=== PATIENT | female | born 1950 | race Caucasian/White ===

== ENCOUNTER 2016-10-30 00:25 | Day surgery (SDC) | payer MEDICARE, OTHER ==
[2016-10-30] VITALS (9 sets, daily range): BP systolic 110–163; BP diastolic 61–93; PULSE 60; RESP 12–16; O2SAT 98–99
[~2016-10-30] VITALS: Ht 162.6 cm; Wt 80.5 kg
[~2016-10-30 00:25] MED LIST: ASPI-973 PO; ATOR40TA69 PO; CALC-976 PO; CARV12.52 PO; FERR-83 PO; FURO-129 PO; LEVO200T PO; LOSA100T3 PO; METF-496 PO; MULT1CAP33 PO; NITR0.4T6 SL
[2016-10-30] MEDS ORDERED: 0.9% Sodium Chloride 1,000 ML IV SCH ×2 (06:40→12:55)
[2016-10-30 10:34] LABS: BASOPHILS % (AUTO) 0.5 % (0-3); EOSINOPHILS % (AUTO) 3.1 % (0-5); MONOCYTES % (AUTO) 9.8 % (4-12); Mean Corpuscular Hemoglobin 27.5 pg (27.0-35.0); Mean Corpuscular Volume 80.6 fL (81-100); NEUTROPHILS % (AUTO) 59.1 % (40-74); Platelet Count 277 bil/L (150-400)
[2016-10-30 10:50] LABS: INR 0.98 ratio
[2016-10-30] MEDS ORDERED: METF500T PO (10:52)
[2016-10-30] MEDS ORDERED: GLPZ5T PO (10:52)
[2016-10-30] MEDS ORDERED: SIMV40TA5 PO (10:52)
--- NOTE | 2016-10-30 10:53 | NUR ---
THEA admit Admitted to [facility] about 1000. VSS. Denies pain. Tele 90-95% paced. IV's started and labs sent. See EMR for further info and assessment. Procedure and recovery reviewed and verbalizes understanding. Awaiting tutorial laboratory supervisor. Addendum: 10/30/16 at 1341 by NEDRA VIDAL RN [id number]
[2016-10-30] MEDS ORDERED: Heparin 10,000 Unit/1,000 mL NS Premix IV ONE (11:39)
[2016-10-30] MEDS ORDERED: Bupivacaine-MPF 0.5% 30 mL Inj ONE (11:40)
[2016-10-30] MEDS ORDERED: Vancomycin 1,000 mg Inj ONE (11:40)
[2016-10-30] MEDS ORDERED: 0.9% Sodium Chloride 250 ML ONE (11:40)
[2016-10-30] MEDS ORDERED: fentaNYL-PF 50 mCg/mL 2 mL Inj ONE (11:57)
[2016-10-30] MEDS ORDERED: Ondansetron 2 mg/mL 2 mL Inj IVPUSH PRN (12:55)
[2016-10-30] MEDS ORDERED: Vancomycin 1,000mg/200 mL NS IV ONE (12:55)
[2016-10-30] MEDS ORDERED: HYDROcodone-APAP 5-325 mg Tablet PO PRN (12:55)
--- NOTE | 2016-10-30 13:23 | NUR ---
Received Received from labor mediator at 1320. Dressing to LCW c/d/i. VSS. Denies pain. Tele paced. Vancomycin finishing. Ice pack applied. Cont. to monitor per orders.
[2016-10-30] MEDS ORDERED: DOXY-232 PO (14:08)
--- NOTE | 2016-10-30 16:11 | NUR ---
Pt discharged to home, ambulatory, accompanied by spouse. Pt's VSS, Lt upper chest dressing CDI, IVs discontinued intact. Pt given all discharge instructions and had no further questions at time of d/c.
--- NOTE | 2016-10-31 02:28 | PROCED ---
[address] [address] PROCEDURE NOTE PATIENT: ROSA ISELA DELATORRE : 1950 MR#: [id number] ADMIT: 10/30/2016 JOB ID: [id number] DATE OF SERVICE: 10/30/2016 SURGEON: Head Of Science: Zachary Kearns MD PREOPERATIVE DIAGNOSIS(ES): Biventricular implantable cardioverter-defibrillator battery depletion. POSTOPERATIVE DIAGNOSIS(ES): Biventricular implantable cardioverter-defibrillator battery depletion. PROCEDURE PERFORMED: Biventricular implantable cardioverter-defibrillator generator replacement (multilead implantable cardioverter-defibrillator generator placement). Medtronic pulse generator, model [id number], serial #[id number]. EXPLANTED DEVICE: Medtronic model D314TR, serial #[id number]. device 1. Medtronic right atrial lead, 45889, [id number]. 2. LV lead, Medtronic 4193 [id number]. 3. RV lead. portion was a pacing 5076 Medtronic 58 cm [id number]. The coils come from an old [place] lead with a fracture which is a Medtronic 6949 58 cm [id number]. ANESTHESIA: Bolus dosing of Versed and fentanyl . This patient is a 46-year-old woman with multifactorial cardiomyopathy whose biventricular ICD has reached . After discussion of risks and benefits of generator replacement, she opted to proceed. PROCEDURE DESCRIPTION: Following informed consent, the patient was taken to the where she was prepped and draped in usual sterile fashion. The left 30 cc of a 50/50 mixture of and lidocaine. Once adequate anesthesia had been achieved, Leads were disconnected from generator and inspected and they showed to be intact. the chronic leads were connected to a new generator and tested showing excellent sensing thresholds and impedance. placed in the capsule, and the wound was dressed with . COMPLICATIONS: None. BLOOD LOSS: Negligible. 1.9 millivolts, 418 ohms, 1.25 volts, 0.75 volts at 0.4 milliseconds, high voltage impedances were 47, 61 ohms. 1 volt at 1 millisecond. FINAL PARAMETERS: 1. 130 beats per minute. 2. at 182 beats per minute. 3. 25 joules for first shock, 300 joules x5. 4. 50 beats per minute. IMPRESSION: Successful biventricular implantable cardioverter-defibrillator generator placement. PLAN: 1. Bedrest and recovery from the THEA. 2. Doxycycline 100 mg p.o. daily x1 week. 3. The patient will return to clinic in one week. 4. Follow up with in six weeks.
[2016-10-31] MEDS ORDERED: Vancomycin Inj 1,000 MG in IV Premix 1 EACH IV ONE (06:40)
== END 2016-10-30 23:59 | disposition home or self-care (01) ==
LOC: SOUO 00:25
PROVIDERS: ATTEND Internal Medicine Cardiovascular Disease
DX: Z45.02 Encounter for adjustment and management of automatic implantable cardiac defibrillator (principal); I25.5 Ischemic cardiomyopathy; I42.0 Dilated cardiomyopathy; I25.10 Atherosclerotic heart disease of native coronary artery without angina pectoris; I10 Essential (primary) hypertension; E78.5 Hyperlipidemia, unspecified; E11.9 Type 2 diabetes mellitus without complications; E03.9 Hypothyroidism, unspecified; I44.7 Left bundle-branch block, unspecified; I25.2 Old myocardial infarction; Z79.82 Long term (current) use of aspirin; Z95.5 Presence of coronary angioplasty implant and graft; Z79.84 Long term (current) use of oral hypoglycemic drugs
CPT/HCPCS: 33264; 36415; 80048; 85025; 85610; 93005; 99152; 99153; C1769; C1882; J1644; J2250; J3010; J3370; J7030; J7050